=== PATIENT | female | born 1975 | race Caucasian/White ===

== ENCOUNTER 2019-03-12 23:44 | Emergency (ER) | payer SELFPAY ==
[~2019-03-12] VITALS: Ht 160 cm; Wt 90.2 kg
--- NOTE | 2019-03-13 00:13 | NUR ---
PT. TO ED WITH C/O SOB X 4 DAYS. HAS BEEN USING HOME NEB AND INHAILERS WITH NO RESULTS. PT. DENIES ANY CP. HX OF ASTHMA. STATES "I AM REFUSING AN EKG AND LABS. I DON'T NEED ANY OF THAT." PT. IS ABLE TO SPEAK IN FULL SENTENCES. CALL LIGHT IN REACH. FAMILY AT FOR SUPPORT. ALL MONITORS PLACED.
[2019-03-13] MEDS ORDERED: ALBUTEROL/IPRATROPIUM 2.5MG/0.5MG, 3 ML NPPB SCH (00:30)
[2019-03-13 01:14] VITALS: BP 156/108
== END 2019-03-13 01:14 | disposition home or self-care (01) ==
LOC: ED 23:59
DX: J20.9 Acute bronchitis, unspecified (principal); J45.41 Moderate persistent asthma with (acute) exacerbation; F17.210 Nicotine dependence, cigarettes, uncomplicated
CPT/HCPCS: 71046; 94640; 99283; 99406; J7512; J7620

== ENCOUNTER 2020-03-22 16:59 | Emergency (ER) | payer OTHER ==
[~2020-03-22] VITALS: Ht 157.5 cm; Wt 79.0 kg
[2020-03-22 17:01] VITALS: BP 147/92
[2020-03-22] MEDS ORDERED: ONDANSETRON ODT 4 MG PO ONE (17:30)
[2020-03-22] MEDS ORDERED: DIPHENHYDRAMINE 25 MG CAPSULE PO ONE (17:30)
[2020-03-22] MEDS ORDERED: KETOROLAC 30 MG/1 ML IM ONE (17:30)
[2020-03-22] MEDS ORDERED: DIPHENHYDRAMINE 25 MG CAPSULE ONE (17:32)
[2020-03-22] MEDS ORDERED: KETOROLAC 30 MG/1 ML ONE (17:32)
[2020-03-22] MEDS ORDERED: ONDANSETRON ODT 4 MG ONE (17:32)
== END 2020-03-22 19:03 | disposition home or self-care (01) ==
LOC: ED 18:11
DX: R51 Headache (principal); R11.0 Nausea; J45.909 Unspecified asthma, uncomplicated; F17.200 Nicotine dependence, unspecified, uncomplicated
CPT/HCPCS: 96372; 99283; J1885; Q0162; Q0163

== ENCOUNTER → 2021-01-23 | Outpatient (CLI) | payer OTHER ==
[~2021-01-23] MED LIST: ALBU2.5V NEB; ALBU90AE INH; ERGO500017 PO; FLUT1BLS3 IH; MONT10TA6 PO; OMEP-110 PO
== END | disposition home or self-care (01) ==
LOC: STAR 15:13
PROVIDERS: ATTEND Obstetrics & Gynecology
DX: Z01.812 Encounter for preprocedural laboratory examination (principal); Z20.822 Contact with and (suspected) exposure to COVID-19; R10.2 Pelvic and perineal pain; D25.9 Leiomyoma of uterus, unspecified; N93.9 Abnormal uterine and vaginal bleeding, unspecified
CPT/HCPCS: 36415; 84703; U0003

== ENCOUNTER 2021-01-29 11:14 | Day surgery (SDC) | payer OTHER ==
[~2021-01-29] VITALS: Ht 160 cm; Wt 74.7 kg
[2021-01-29] MEDS ORDERED: LACTATED RINGERS 1,000 ML IV SCH (11:30)
[2021-01-29] MEDS ORDERED: LIDOCAINE-MPF 1%, 2ML INFIL ONE (11:30)
[2021-01-29] MEDS ORDERED: CHLORHEXIDINE 15 ML UDC MM ONE (11:30)
[2021-01-29 11:40] VITALS: BP 129/90
[2021-01-29 11:56] LABS: HCG UR SG 1.014 (1.003-1.030)
[2021-01-29] MEDS ORDERED: SODIUM CHLORIDE 0.9% 50 ML ONE (12:30)
[2021-01-29] MEDS ORDERED: BUPIVACAINE/PF 0.25% ONE (12:30)
[2021-01-29] MEDS ORDERED: EPINEPHRINE 1 MG/ML, 1ML ONE (12:30)
[2021-01-29] MEDS ORDERED: FLUORESCEIN SODIUM 500 MG/5 ML ONE (12:30)
[2021-01-29] MEDS ORDERED: VASOPRESSIN 20 UNIT/ML, 1ML ONE (12:31)
[2021-01-29] MEDS ORDERED: ACETAMINOPHEN 500 MG TABLET ONE (12:35)
[2021-01-29] MEDS ORDERED: SCOPOLAMINE 1MG PATCH TD ONE (12:35)
[2021-01-29] MEDS ORDERED: MIDAZOLAM 1 MG/ML, 2ML ONE (12:37)
[2021-01-29] MEDS ORDERED: FENTANYL PF 250 MCG/5ML ONE (12:37)
[2021-01-29] MEDS ORDERED: CEFAZOLIN 1,000 MG ONE ×2 (12:38)
[2021-01-29] MEDS ORDERED: PROPOFOL 10 MG/ML, 20ML ONE (12:38)
[2021-01-29] MEDS ORDERED: ROCURONIUM 10MG/ML,5ML ONE (12:38)
[2021-01-29] MEDS ORDERED: DEXAMETHASONE 4 MG/ML, 5ML ONE ×2 (12:39→14:11)
[2021-01-29] MEDS ORDERED: PHENAZOPYRIDINE 200 MG TABLET ONE (12:45)
[2021-01-29] MEDS ORDERED: PHENAZOPYRIDINE 200 MG TABLET PO ONE (13:00)
[2021-01-29] MEDS ORDERED: ACETAMINOPHEN 500 MG TABLET PO ONE (13:00)
[2021-01-29] MEDS ORDERED: SCOPOLAMINE 1MG PATCH TD SCH (13:00)
[2021-01-29] MEDS ORDERED: GABAPENTIN 100 MG CAPSULE PO ONE (13:00)
[2021-01-29] MEDS ORDERED: FENTANYL PF 100 MCG/2ML ONE ×3 (13:48→15:59)
[2021-01-29] MEDS ORDERED: ONDANSETRON 2MG/ML, 2ML ONE (14:10)
[2021-01-29] MEDS ORDERED: SUGAMMADEX 200 MG/2 ML IVPush ONE (14:11)
[2021-01-29] MEDS ORDERED: HYDROmorphone 1 MG/ML, 1ML INJ ONE (15:59)
[2021-01-29] MEDS ORDERED: OXYcodone 5 MG/5 ML ORAL.SOL UDC ONE (15:59)
[2021-01-29] MEDS ORDERED: METOCLOPRAMIDE 5 MG/ML, 2ML IV PRN (16:00)
[2021-01-29] MEDS ORDERED: PROMETHAZINE 25 MG/ML, 1ML IV PRN (16:00)
[2021-01-29] MEDS ORDERED: KETOROLAC 30 MG/1 ML IV PRN (16:00)
[2021-01-29] MEDS ORDERED: LABETALOL 5MG/ML, 20ML IV PRN (16:00)
[2021-01-29] MEDS ORDERED: HYDROmorphone 1 MG/ML, 1ML INJ IV PRN (16:00)
[2021-01-29] MEDS ORDERED: OXYcodone 5 MG/5 ML ORAL.SOL UDC PO PRN (16:00)
[2021-01-29] MEDS ORDERED: DIAZEPAM 5 MG/ML, 2ML IV PRN ×2 (16:00)
[2021-01-29] MEDS ORDERED: MEPERIDINE/PF 25MG/0.5ML IVPush PRN (16:00)
[2021-01-29] MEDS ORDERED: ALBUTEROL SULFATE 2.5 MG/3 ML NPPB PRN (16:00)
[2021-01-29] MEDS ORDERED: hydrALAzine 20 MG/ML, 1ML IV PRN (16:00)
[2021-01-29] MEDS ORDERED: ONDANSETRON 2MG/ML, 2ML IVPush PRN (16:00)
[2021-01-29] MEDS: FENTANYL PF 100 MCG/2ML IV PRN ×2 (16:23→16:28)
[2021-01-29] MEDS ORDERED: ACETAMINOPHEN 650 MG/20.3 ML UDC ONE (16:32)
[2021-01-29] MEDS ORDERED: ACET325T14 PO (17:20)
[2021-01-29] MEDS ORDERED: TRAM50TA2 PO (17:21)
[2021-01-29] MEDS ORDERED: IBUP-1222 PO (17:21)
[2021-01-29] MEDS ORDERED: ESTR1TAB15 PO (17:22)
[2021-01-29] MEDS ORDERED: ONDA4TAB7 PO (17:22)
== END 2021-01-29 19:35 | disposition home or self-care (01) ==
LOC: OUT 11:14
PROVIDERS: ATTEND Obstetrics & Gynecology
DX: N93.8 Other specified abnormal uterine and vaginal bleeding (principal); D25.1 Intramural leiomyoma of uterus; N88.8 Other specified noninflammatory disorders of cervix uteri; N83.8 Other noninflammatory disorders of ovary, fallopian tube and broad ligament; N94.89 Other specified conditions associated with female genital organs and menstrual cycle; N83.292 Other ovarian cyst, left side; N83.291 Other ovarian cyst, right side; N73.6 Female pelvic peritoneal adhesions (postinfective); F12.90 Cannabis use, unspecified, uncomplicated; Z79.899 Other long term (current) drug therapy; Z80.41 Family history of malignant neoplasm of ovary; Z82.49 Family history of ischemic heart disease and other diseases of the circulatory system
CPT/HCPCS: 57283; 58552; 81025; 88307; J0171; J0690; J1100; J2250; J2405; J2704; J3010; J7120